=== PATIENT | male | born 1950 | race Caucasian/White ===

== ENCOUNTER 2017-06-01 10:18 | Observation (INO) | payer MEDICARE, BC ==
[2017-06-01] MEDS ORDERED: CEFAZOLIN 2 GM/50 ML (PMX) 50 ML IVPB (10:30)
[2017-06-01] MEDS ORDERED: ROCURONIUM 50 MG INJ (12:39)
[2017-06-01] MEDS ORDERED: FENTAnyl 50 MCG/ML VIAL (12:39)
[2017-06-01] MEDS ORDERED: PROPOFOL 100 ML (12:39)
[2017-06-01] MEDS ORDERED: MIDAZOLAM 1 MG/ML 2 ML INJ (12:39)
[2017-06-01] MEDS ORDERED: LIDOCAINE 100 MG SYRINGE (12:39)
[2017-06-01] MEDS ORDERED: CEFAZOLIN 1 GM INJ (12:53)
[2017-06-01] MEDS ORDERED: ONDANSETRON 4 MG INJ (12:58)
[2017-06-01] MEDS ORDERED: SUGAMMADEX SODIUM 200 MG/2 ML VIAL IV (12:58)
[2017-06-01] MEDS ORDERED: DEXAMETHASONE 4 MG/ML 1 ML INJ (12:58)
[2017-06-01] MEDS ORDERED: EPHEDrine SULFATE 50 MG/5 ML SYG (13:12)
[2017-06-01] MEDS ORDERED: ACETAMINOPHEN 1000MG/100ML IV 100 ML (13:21)
[2017-06-01] MEDS ORDERED: HYDROmorphONE (0.2 MG/ML) 10ML SYG IV ×3 (13:30)
[2017-06-01] MEDS ORDERED: ONDANSETRON 4 MG INJ IV (13:30)
[2017-06-01] MEDS ORDERED: LABETALOL HCL 20MG INJ IV (13:30)
[2017-06-01] MEDS ORDERED: OXYCODONE/ACETAMINOPHEN (5/325) TAB PO (13:30)
[2017-06-01] MEDS ORDERED: FENTAnyl 50 MCG/ML VIAL IV (13:30)
[2017-06-01] MEDS ORDERED: METOCLOPRAMIDE 10 MG INJ IV (13:30)
[2017-06-01] MEDS ORDERED: MEPERIDINE 25 MG INJ IV (13:30)
[2017-06-01] MEDS ORDERED: EPHEDrine SULFATE 50 MG/5 ML SYG IV (13:30)
[2017-06-01] MEDS ORDERED: hydrALAzine 20 MG INJ IV (13:30)
[2017-06-01] MEDS ORDERED: TOLTERODINE (SR) 4 MG CAP PO (15:30)
[2017-06-01] MEDS ORDERED: HYDROCODONE/APAP (5/325) TAB PO (15:30)
[2017-06-01] MEDS: CIPROFLOXACIN 500 MG TAB PO (18:25)
[2017-06-01] MEDS: DEXTROSE 5%-0.45% NACL 1,000 ML IV (18:26)
[2017-06-01] MEDS: DOCUSATE SODIUM 100 MG CAP PO (20:34)
[2017-06-02 05:34] LABS: ADD MAN DIFF? NO
[2017-06-02] MEDS: CIPROFLOXACIN 500 MG TAB PO (05:35)
[2017-06-02 05:48] LABS: WHITE BLOOD COUNT 13.8 10^3/ul (4.8-10.8)
[2017-06-02 05:48] LABS: BASOPHILS % 0.1 % (0.0-2.0); EOSINOPHILS % 0.1 % (0.0-7.0); HEMATOCRIT 41.2 % (42.0-52.0); HEMOGLOBIN 13.7 g/dl (14.0-18.0); LYMPHOCYTES # 1.4 10^3/ul (0.8-2.9); LYMPHOCYTES % 9.9 % (15.0-51.0); MEAN CORPUSCULAR HEMOGLOBIN 31.2 pg (29.0-33.0); MEAN CORPUSCULAR HGB CONC 33.3 g/dl (32.0-37.0); MEAN CORPUSCULAR VOLUME 93.8 fl (82.0-101.0); MEAN PLATELET VOLUME 10.4 fl (7.4-10.4); MONOCYTE # 1.1 10^3/ul (0.3-0.9); MONOCYTES % 8.1 % (0.0-11.0); NEUTROPHIL # 11.2 10^3/ul (1.6-7.5); NEUTROPHILS % 81.1 % (39.0-77.0); PLATELET COUNT 269 10^3/UL (140-415); RED BLOOD COUNT 4.39 10^6/ul (4.70-6.10); RED CELL DISTRIBUTION WIDTH 14.3 % (11.5-14.5)
[2017-06-02] MEDS: TOLTERODINE (SR) 2 MG CAP PO (09:00)
[2017-06-02] MEDS: DOCUSATE SODIUM 100 MG CAP PO (09:00)
[2017-06-02] MEDS: DEXTROSE 5%-0.45% NACL 1,000 ML IV (11:09)
== END 2017-06-02 12:49 | disposition home or self-care (01) ==
LOC: SDS 10:18 → REC 15:13 → MS1 17:00
PROVIDERS: Urology
DX: N21.0 Calculus in bladder (principal); N40.0 Benign prostatic hyperplasia without lower urinary tract symptoms; I10 Essential (primary) hypertension
CPT/HCPCS: 52318; 85025; 87086; 88300; 99217